=== PATIENT | male | born 1950 | race Caucasian/White ===

== ENCOUNTER 2021-01-08 22:17 | Emergency (ER) | payer OTHER ==
[~2021-01-08] VITALS: Ht 182.9 cm; Wt 110.0 kg
[2021-01-09] MEDS ORDERED: LISINOPRIL10 MG PO (00:18)
== END 2021-01-08 22:20 ==
LOC: ER 22:17
DX: I46.9 Cardiac arrest, cause unspecified (principal); I25.10 Atherosclerotic heart disease of native coronary artery without angina pectoris; Z95.5 Presence of coronary angioplasty implant and graft